=== PATIENT | male | born 1955 | race Caucasian/White ===

== ENCOUNTER → 2020-07-24 | Outpatient (CLI) | payer BC | END | disposition home or self-care (01) | LOC: LABWHC1 13:01 | PROVIDERS: ATTEND Family Medicine | DX: Z20.828 Contact with and (suspected) exposure to other viral communicable diseases (principal) | CPT/HCPCS: U0003; C9803 ==

== ENCOUNTER 2024-07-11 10:53 | Day surgery (SDC) | payer MEDICARE ==
[2024-07-07 15:36] VITALS: BMI 24.0
[~2024-07-11 10:53] MED LIST: LIDOCAINE 1% (10MG/ML) FOR IV START INTRADERMA PRN; ONDANSETRON 4 MG/2 ML VIAL IVP PRN
[2024-07-11 11:45] VITALS: TEMP 96.7
[2024-07-11] MEDS: IV FLUID CONTINUATION 1,000 ML IV ONE (11:50)
[2024-07-11] MEDS: LACTATED RINGERS 1,000 ML IV SCH (11:50)
[2024-07-11] MEDS ORDERED: PROPOFOL 10 MG/ML 20 ML VIAL IV ONE (12:26)
--- NOTE | 2024-07-11 12:41 | P.PCN ---
Date of Procedure: 07/11/24 Procedure(s) Performed: BRIEF HISTORY: Patient is a 69-year-old pleasant white male scheduled for an elective colonoscopy as a part of screening for colon cancer. Last colonoscopy was 11 years ago. PROCEDURE PERFORMED: Colonoscopy with snare polypectomy. PREOPERATIVE DIAGNOSIS: Screening for colon cancer. IV sedation per Anesthesia. PROCEDURE: After informed consent was obtained, the patient, was brought into the endoscopy unit. IV sedation was administered by Anesthesia under continuous monitoring. Digital rectal examination was normal. Initially the Olympus CF-160 flexible video colonoscope was then inserted in the rectum, gradually advanced into the cecum without any difficulty. Careful examination was performed as the scope was gradually being withdrawn. Ileocecal valve and the appendiceal orifice were visualized and appeared normal. Prep was excellent. Mucosa of the cecum, ascending colon, transverse colon, descending colon, sigmoid colon, and rectum appeared normal. The mid rectum there was a 1.2 cm polyp that was removed by snare polypectomy. Retroflexion was performed in the rectum and grade 2 internal hemorrhoid were seen. The patient tolerated the procedure well. IMPRESSION: 1.3 cm distal rectal polyp status post snare polypectomy Grade 2 internal hemorrhoids Rest of the colon appeared normal RECOMMENDATIONS: Findings of this examination were discussed with the patient as well as his family. He was advised to follow-up with the biopsy results. If the biopsy reveals adenoma he can have repeat colonoscopy 3 years.
[2024-07-11 12:49] VITALS: RESP 16
[2024-07-11 13:05] VITALS: BP 157/95; PULSE 58
== END 2024-07-11 13:24 | disposition home or self-care (01) ==
LOC: ORWHC2ENDO 10:53
PROVIDERS: ATTEND Internal Medicine Gastroenterology
DX: Z12.11 Encounter for screening for malignant neoplasm of colon (principal); D12.8 Benign neoplasm of rectum; K64.1 Second degree hemorrhoids; I10 Essential (primary) hypertension; F41.9 Anxiety disorder, unspecified; Z79.899 Other long term (current) drug therapy; Z98.890 Other specified postprocedural states
CPT/HCPCS: 45385; J2704; 88305

== ENCOUNTER 2025-01-09 09:27 | Day surgery (SDC) | payer MEDICARE ==
[~2025-01-09 09:27] MED LIST changes: -ONDANSETRON 4 MG/2 ML VIAL IVP PRN
[2025-01-09] MEDS: IV FLUID CONTINUATION 1,000 ML IV ONE (10:36)
[2025-01-09] MEDS: LACTATED RINGERS 1,000 ML IV SCH (10:39)
[2025-01-09 10:40] VITALS: TEMP 97.2
[2025-01-09] MEDS ORDERED: PROPOFOL 10 MG/ML 20 ML VIAL IV ONE (11:01)
--- NOTE | 2025-01-09 11:11 | P.PCN ---
Date of Procedure: 01/09/25 Procedure(s) Performed: Patient is a 69 year-old schedule for flexible sigmoidoscopy as part of evaluation of rectal polyp noted on routine screening colonoscopy July 2024 that showed tubular adenoma with high-grade dysplasia. Preoperative diagnosis: Rectal polyp with high-grade dysplasia Procedure Flexible sigmoidoscopy Anesthesia MAC Description of procedure: The patient was brought into the endoscopy unit IV conscious sedation was administered by anesthesia and continuous monitoring. Initial digital rectal examination was normal. The Olympus CF 160 video colonoscope was then inserted into the rectum and gradually advanced to the splenic flexure. Careful examination was performed as the scope was gradually being withdrawn. Prep was excellent. Mucosa of the descending colon sigmoid colon and rectum appeared normal. There was no residual rectal polyp identified. Retroflexion was performed the rectum and small internal hemorrhoids were seen and the patient tolerated the procedure well. Impression: Normal-appearing rectum with no evidence of residual polyp Small internal hemorrhoids. Recommendations: Findings of this examination were discussed with the patient as well as his family. He was advised to have repeat screening colonoscopy in 3 years because of history of colon
[2025-01-09 11:39] VITALS: BP 123/81; PULSE 53; RESP 16
== END 2025-01-09 12:05 | disposition home or self-care (01) ==
LOC: ORWHC2ENDO 09:27
PROVIDERS: ATTEND Internal Medicine Gastroenterology
DX: K62.1 Rectal polyp (principal); K64.8 Other hemorrhoids; Z86.0101 Personal history of adenomatous and serrated colon polyps; I10 Essential (primary) hypertension; N40.0 Benign prostatic hyperplasia without lower urinary tract symptoms; Z79.899 Other long term (current) drug therapy
CPT/HCPCS: 45330; J2704